=== PATIENT | male | born 1995 | race Caucasian/White ===

== ENCOUNTER 2017-07-10 13:17 | Day surgery (SDC) | payer OTHER ==
[~2017-07-10 13:17] MED LIST: Buffered Lidocaine 0.9% SYRIN* 5 ML/SYR SYRINGE INTRADERM ONE; Sodium Citrate/Citric Acid* 15 ML UDC PO ONE
[2017-07-10] MEDS ORDERED: Sodium Citrate/Citric Acid* 15 ML UDC ONE (13:18)
[2017-07-10] MEDS ORDERED: Bupivacaine 0.25% SDV* 30 ML ONE (13:18)
[2017-07-10] MEDS ORDERED: ceFAZolin 2 GM in 100 MLS NS (*) BAG IVPB ONE (13:18)
[2017-07-10] MEDS ORDERED: Bupivacaine 0.5% SDV PF* 10-30ML VIAL ONE (13:30)
[2017-07-10] MEDS ORDERED: Propofol* 10 MG/ML 20 ML BTL IV PUSH ONE (14:04)
[2017-07-10] MEDS ORDERED: Lidocaine 2% PF * 5 ML VIAL ONE (14:04)
[2017-07-10] MEDS ORDERED: fentaNYL* 50 MCG/ML 2 ML VIAL (100 MCG VIAL) ONE (14:05)
[2017-07-10] MEDS ORDERED: Midazolam* 1 MG/ML 2 ML VIAL (2 MG) ONE (14:05)
[2017-07-10] MEDS ORDERED: Dexamethasone IV* 4 MG/ML 1 ML (4 MG) ONE (14:54)
[2017-07-10] MEDS ORDERED: Ketorolac INJ* 30 MG/ML 1 ML VIAL ONE (16:00)
[2017-07-10] MEDS ORDERED: Ondansetron INJ* 2 MG/ML VIAL IV PRN (16:34)
[2017-07-10] MEDS ORDERED: fentaNYL* 50 MCG/ML 2 ML VIAL (100 MCG VIAL) IV PRN (16:34)
[2017-07-10] MEDS ORDERED: Naloxone* 0.4 MG/ML 1 ML VIAL IV PRN (16:34)
[2017-07-10 17:18] VITALS: BP 134/73
--- NOTE | 2017-07-10 17:54 | OP ---
Operative Report - Blank - Operative Report Date of Operation: 07/10/17 Note: PATIENT: Chilo Potter DATE OF : [birth year] DATE OF SURGERY: 07/10/17 SURGEON: Hermann Tomlin MD TAP BUILDER: MARE Donovan, whos assistance was necessary for positioning, retraction, help with instrumentation, and closure. 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 Left ankle arthroscopy with extensive debridement. 2. Curettage and microfracture of talar osteochondral lesion. 3. Left ankle modified Brostrom procedure lateral ligament reconstruction. ANESTHESIA: GETA IMPLANTS: none TOURNIQUET TIME: Less than 90 min., with a well-padded thigh tourniquet. SPECIMENS: none ESTIMATED BLOOD LOSS: minimal COMPLICATIONS: none STATUS: Stable from the operating room to the recovery room and then home. 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 Both operative and non operative treatment alternatives were reviewed. Further, the nature and risks of surgery were reviewed in careful detail, in the office as well as the pre-operative holding area. Our discussions regarding the risks of surgery included, but were not limited to, infection, wound problems, nerve injury, neuroma, RSD, persistent symptoms, blood clot, failure of the surgery, and even the remote chance of catastrophic complication, including loss of limb. DESCRIPTION OF PROCEDURE: The patient was seen in the preoperative holding unit and informed written consent was obtained. The appropriate extremity was marked. The patient was then brought to the operating room and carefully positioned on the operating room table. Anesthesia was induced. All bony prominences were padded with great care. A well-padded thigh tourniquet was placed. A chlorhexidine based pre- scrub was performed followed by a chloraprep prep and drape in standard sterile fashion. A surgical safety pause was then conducted in which we confirmed the appropriate patient, extremity, planned procedure, availability of equipment, indication and administration of prophylactic antibiotics, and DVT prophylaxis in the form of a compression boot on the non-surgical extremity. An Esmarch exsanguination of the limb was then performed and the tourniquet inflated. The leg was positioned in the noninvasive ankle arthroscopy leg hancock setup. I began by establishing the anteromedial portal. I utilized a spinal needle for this. Great care was taken to protect the superficial neurovascular structures. Under direct visualization, I then established an anterolateral portal. Great care was taken to protect the superficial peroneal nerve. I utilized the full radius shaver to remove a considerable amount of synovitis from the anterior aspect of the ankle joint. This was carefully removed to give a nice view of the ankle joint. There was a large osteochondral lesion of the talus at the lateral talar dome. There were no additional chondral lesions appreciated. At this point, I utilized a ringed curette to remove loose debris from within the osteochondral lesion. This was curetted back to a stable rim around the perimeter of lesion. The calcified cartilage layer was then removed. I then utilized the microfracture awl to microfracture the lesion. There was healthy bleeding from the subchondral bone. I then again utilized the full radius shaver to remove all additional debris from the ankle joint. I removed the arthroscopic equipment and closed the portals utilizing 3-0 nylon suture. I then made an approximately 8 cm incision overlying the distal fibula. This was made in line with the distal fibula and then curving anteriorly in line with the fourth ray. Dissection was carried down through the soft tissues. Superficial hemostasis was obtained. I dissected down to the lateral aspect of the fibula at the periosteal and ligamentous layer and then dissected anteriorly to expose the anterolateral ankle ligaments. We protected the superficial peroneal nerve at all times, which was not visualized within our field. Once we had adequately exposed a pocket anterior to the ligaments, we sharply took the ligaments down off of the anterior and distal aspect of the fibula using a 15 blade. The inferior extensor retinaculum was exposed and protected for subsequent repair later in the procedure. I then utilized a rongeur to make a trough along the fibula to receive the reconstructed ligaments. I then utilized a 0.062 inch K-wire to drill holes in the fibula for a transosseous suture repair of the lateral ligaments utilizing a horizontal mattress suture. Multiple #1 Vicryl sutures were passed through the fibula and then through the ligaments and then back through the fibula. These sutures were all passed with great care taken to appropriately tension both the ATFL as well as the CFL in order to get a nice tight repair. We held the ankle in a dorsiflexed and everted position while the ligaments and sutures were tied down over the fibular bone bridges. These held the ankle in a much improved position with excellent tension on the ligaments. We then utilized a rotational flap from the periosteum overlying the distal fibula to augment the repair. This was sewn down using a horizontal mattress stich overlying the ATFL. We further augmented the repair by bringing the inferior extensor retinaculum up to the fibula. There was a much improved anterior drawer at this point as compared to pre-operatively. The wound was copiously irrigated. At this point, a sterile dressing was applied and the ankle was splinted in a neutral position. The patient was then awakened from anesthesia and transferred to the recovery room in stable condition. There were no complications. All needle and sponge counts were correct at the end of the case. ATTESTATION: I attest I was present and scrubbed and performed the critical portions of the procedure myself. POSTOPERATIVE PLAN: The patient will remain nonweightbearing for an anticipated duration of six weeks. Follow up will be in two weeks for likely suture removal, Steri-Strip application and transition into a short leg cast.
== END 2017-07-10 17:40 | disposition home or self-care (01) ==
LOC: OR 13:17
PROVIDERS: ATTEND Orthopaedic Surgery
DX: M93.272 Osteochondritis dissecans, left ankle and joints of left foot (principal); M25.372 Other instability, left ankle
CPT/HCPCS: A9270-GY; C1776; J1100; J1885; J2250; J2704; J3010

== ENCOUNTER 2017-07-12 12:44 | Emergency (ER) | payer OTHER ==
[2017-07-12] MEDS ORDERED: Morphine INJ* 4 MG/ML 1 ML SYRINGE (NEW SYRINGE VERSION) IM ONE (14:25)
[2017-07-12] MEDS ORDERED: PROCHLORPERAZINE INJ 5 MG/ML 2 ML VIAL IM ONE (14:26)
[2017-07-12] MEDS ORDERED: Ibuprofen TAB* 600 MG PO ONE (14:41)
--- NOTE | 2017-07-12 16:06 | ED ---
Alvin Bedoya Nilda, scribed for Matt Calero MD on 07/12/17 at 1330 . Lower Extremity - HPI Summary HPI Summary: This patient is a 21 year old M presenting to [facility] accompanied by friend with a chief complaint of constant worsening left ankle pressure and pain since last night. Patient states he had ligament repair surgery 3 days ago on LLE, performed by Dr. Tomlin, and is concerned his stitches might have ripped. The patient rates the pain 6/10 in severity. Symptoms aggravated by movement and palpation and alleviated by Oxycodone, Tylenol, and Ibuprofen. - History of Current Complaint Chief Complaint: EDExtremityLower Stated Complaint: POSSIBLY SPLIT SURGICAL STICHES Time Seen by Provider: 07/12/17 13:16 Hx Obtained From: Patient Mechanism Of Injury: Other - surgery Onset of Pain: Days Onset/Duration: Days Severity Currently: Severe Pain Intensity: 6 Pain Scale Used: 0-10 Numeric Timing: Constant Location: Is Discrete @ - left ankle Aggravating Factor(s): Movement, Other - palpation Alleviating Factor(s): OTC Meds, Other - oxycodone - Allergies/Home Medications Allergies/Adverse Reactions: Allergies Allergy/AdvReac Type Severity Reaction Status Date / Time No Known Allergies Allergy Verified 06/30/17 13:17 PMH/Surg Hx/FS Hx/Imm Hx Endocrine/Hematology History: Denies: Hx Diabetes Cardiovascular History: Denies: Hx Hypertension, Hx Pacemaker/ICD, Other Cardiovascular Problems/ Disorders Respiratory History: Denies: Other Respiratory Problems/Disorders GI History: Denies: Other GI Disorders History: Denies: Hx Renal Disease, Other Problems/Disorders Musculoskeletal History: Reports: 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, Hx Tendonitis - Left wrist, history of, Other Musculoskeletal History - fracture left and right radius 2015, Sensory History: Denies: Hx Contacts or Glasses, Hx Hearing Aid Opthamlomology History: Denies: Hx Contacts or Glasses Neurological History: Denies: Other Neuro Impairments/Disorders Psychiatric History: Denies: Hx Panic Disorder - Surgical History Surgery Procedure, Year, and Place: DENIES Infectious Disease History: No Infectious Disease History: Denies: Traveled Outside the [place] in Last 30 Days - Family History Known Family History: Negative: Hypertension, Diabetes - Social History Alcohol Use: Occasionally Substance Use Type: Reports: None Smoking Status (MU): Never Smoked Tobacco Review of Systems Negative: Shortness Of Breath Positive: Other - left ankle pain s/p surgery on LLE, possible ripped stitches All Other Systems Reviewed And Are Negative: Yes Physical Exam - Summary Physical Exam Summary: VITAL SIGNS: Reviewed. GENERAL: Patient is a well-developed and nourished male who is lying comfortable in the stretcher. Patient is not in any acute respiratory distress. HEAD AND FACE: No signs of trauma. No ecchymosis, hematomas or skull depressions. No sinus tenderness. EYES: PERRLA, EOMI x 2, No injected conjunctiva, no nystagmus. EARS: Hearing grossly intact. Ear canals and tympanic membranes are within normal limits. MOUTH: Oropharynx within normal limits. NECK: Supple, trachea is midline, no adenopathy, no JVD, no carotid bruit, no c- spine tenderness, neck with full ROM. CHEST: Symmetric, no tenderness at palpation LUNGS: Clear to auscultation bilaterally. No wheezing or crackles. CVS: Regular rate and rhythm, S1 and S2 present, no murmurs or gallops appreciated. ABDOMEN: Soft, non-tender. No signs of distention. No rebound no guarding, and no masses palpated. Bowel sounds are normal. EXTREMITIES: Heavy splint/cast over left ankle extending from distal foot to proximal leg. When cast was removed, pt has mild swelling and mild ecchymosis over the left malleolus with echymotic changes over left ankle. Stitches are in place. Neurovascular exam intact. NEURO: Alert and oriented x 3. No acute neurological deficits. Speech is normal and follows commands. SKIN: Dry and warm Triage Information Reviewed: Yes Vital Signs On Initial Exam: Initial Vitals Temp Pulse Resp BP Pulse Ox 97.5 F 61 17 148/55 98 07/12/17 12:53 07/12/17 12:53 07/12/17 12:53 07/12/17 12:53 07/12/17 12:53 Vital Signs Reviewed: Yes Diagnostics - Vital Signs Vital Signs Temp Pulse Resp BP Pulse Ox 07/12/17 12:53 97.5 F 61 17 148/55 98 - Laboratory Lab Statement: Any lab studies that have been ordered have been reviewed, and results considered in the medical decision making process. Lower Extremity Course/Dx - Course Assessment/Plan: Pt is a 21 y/o with left ankle surgery by Dr. Tomlin on 07/11/17 in here with increasing pain to left ankle since last night. Cast/Splint was removed and the exam was consistent with post operative changes. When tried to replace cast pt states it was very painful. [1420] Spoke to Dr. Ford (Ortho) who agrees to see pt in ED. Splint was replaced by Dr. Fodr who has not spoken to me about pt. Pt will be D/C home with follow up with Dr. Tomlin on Friday07/14/17. Dx. Post-operative pain. - Diagnoses Provider Diagnoses: Post-operative pain - Physician Notifications Discussed Care Of Patient With: Jeannine Ford - ortho Time Discussed With Above Provider: 14:20 Instructed by Provider To: MD Will See In ED Discharge - Discharge Plan Condition: Stable Disposition: HOME Patient Education Materials: Acute Wound Care (ED), Leg Pain (ED) Referrals: Hermann Tomlin MD [Medical Doctor] - 07/14/17 Additional Instructions: Follow up with your orthopedic physician on Friday07/14/17. RETURN TO THE EMERGENCY DEPARTMENT FOR CHANGING OR WORSENING SYMPTOMS. The documentation as recorded by the Alvin chaudhry Nilda accurately reflects the service I personally performed and the decisions made by me, Matt Calero MD.
[2017-07-12 16:15] VITALS: BP 135/60
--- NOTE | 2017-07-12 22:02 | CONS ---
CC: Dr. Ford CONSULTATION REPORT: DATE OF CONSULT: 07/12/17 CHIEF COMPLAINT: Left ankle pain. HISTORY OF PRESENT ILLNESS: Chilo is a 21-year-old male, who had surgery [address] Sada hannon or an osteochondral lesion of his left talus. He had a debridement as well as ligamentous reconstruc tion. He came to the emergency room today complaining of extreme pain in his left ankle on the later al aspect fearing that he had ripped the stitches out. The emergency room physician evaluated the pa tient by taking the dressing down. The wounds are all clean. There is some bleeding from the latera l ankle wound, but no sign of infection. There is ecchymosis. There is no erythema. There is mild swelling. He has intact neurovascular function. He can move his toes well. Ankle motion is painful . He has no sign of a DVT. His calf is soft. IMPRESSION: Left ankle pain after an arthroscopic left ankle surgery, probably from the splint. PLAN: The splint was rebuilt with a posterior splinting side bars and the patient stated that it was much more comfortable and he was able to tolerate the pain much better. He will keep his followup a ppointment with Dr. Tomlin and call sooner if he has any further problems. [id number]/[facility] #: [id number]
== END 2017-07-12 16:13 | disposition home or self-care (01) ==
LOC: ED 12:44
DX: G89.18 Other acute postprocedural pain (principal); M25.572 Pain in left ankle and joints of left foot
CPT/HCPCS: 99282; A9270-GY; J0780; J2270